=== PATIENT | female | born 1940 | race Caucasian/White ===

== ENCOUNTER → 2018-01-06 10:07 | Outpatient (CLI) | payer MEDICARE, OTHER ==
[2014-12-08 13:29] VITALS: BMI 26.6
[~2018-01-06 10:07] MED LIST: HYDROCODONE-APA1 TAB PO; ISOSORBIDE DINI10 MG; PRAVACHOL40 MG PO; SYNTHROID88 MCG PO
== END | disposition home or self-care (01) ==
LOC: D.OPS 10:07 → D.SP 11:00
DX: M16.12 Unilateral primary osteoarthritis, left hip (principal); Z01.812 Encounter for preprocedural laboratory examination

== ENCOUNTER 2019-02-05 06:00 | Day surgery (SDC) | payer MEDICARE, BC ==
[2019-02-03 14:20] LABS: BASOPHILS 0.3 % (0-2); EOSINOPHILS 0 % (0-7); HEMATOCRIT 44.5 % (36.0-48.0); HEMOGLOBIN 14.6 g/dL (12-16); IMMATURE GRANULOCYTES 0.5 % (0-5); LYMPHOCYTES 26.7 % (15-50); MCH 30.1 pg (26.0-34.0); MCHC 32.8 g/dL (31.0-37.0); MCV 91.8 fL (80.0-100.0); MEAN PLATELET VOLUME 9.7 fL (7.4-10.4); MONOCYTES 9.9 % (2-11); NEUTROPHILS 62.6 % (40-80); RBC 4.85 10x6/uL (4.00-5.40); RDW 13.9 % (11.5-14.5)
[2019-02-03 14:22] LABS: PLATELET COUNT 172 10x3/uL (130-400)
[2019-02-03 14:39] LABS: ANION GAP 11.5 mmol/L (8-16); CALCIUM 8.5 mg/dL (8.5-10.1); CARBON DIOXIDE 28.7 mmol/L (21.0-32.0); POTASSIUM - SERUM 4.2 mmol/L (3.5-5.1)
[~2019-02-05] VITALS: Ht 160 cm; Wt 69.4 kg
[~2019-02-05 06:00] MED LIST changes: +CELEXA40 MG PO; +PROTONIX40 MG PO; +VITAMIN D250000 UNIT PO
[2019-02-05 06:35] VITALS: BP 148/77; Ht 160 cm; Wt 69.4 kg
[2019-02-05] MEDS ORDERED: HYDROCODON-ACE1 EA10 PO (08:51)
--- NOTE | 2019-02-05 15:30 | NUR ---
PATIENT AMBULATES TO BATHROOM AND VOIDS MODERATE AMOUNT IN TOILET WITHOUT DIFFICULTY. PATIENT STATES "IT WASN'T A WHOLE LOT BUT IT WAS A GOOD LITTLE STREAM." BLADDER NONPALPABLE
--- NOTE | 2019-02-05 15:50 | NUR ---
PATIENT DISCHARGED HOME VIA WHEELCHAIR TO PRIVATE VEHICLE WITH SON
--- NOTE | 2019-02-06 11:12 | OP ---
PATIENT NAME: BASHIR MENENDEZ MEDICAL RECORD: [id number] :40 LOCATION:[facility] ADMISSION DATE: SURGEON: DELFINO ROSALES MD DATE OF OPERATION: 02/05/2019 PREOPERATIVE DIAGNOSES: 1. Gallstones. 2. Hypercholesterolemia. 3. Arthritis. POSTOPERATIVE DIAGNOSES: 1. Gallstones. 2. Hypercholesterolemia. 3. Arthritis. PROCEDURE: Laparoscopic cholecystectomy. SURGEON: Delfino Rosales MD REPORT OF PROCEDURE: The patient's abdomen was prepped and draped in sterile fashion. A cutdown was made just above the umbilicus in the midline. 0 Vicryls were placed in the fascia bilaterally and the fascia was incised with a 15 blade, then bluntly entered the abdominal cavity and placed a 12-mm Artemio port. Under direct visualization, a 5 mm trocar was placed in the epigastrium and 2 more 5-mm trocars were placed in the right subcostal region. The gallbladder was elevated. There was noted to be some inflammatory adhesions present on the inferior aspect of the gallbladder as it went out through the cystic duct. We were able to tease these adhesions down and eventually the cystic artery and cystic duct were dissected free. The cystic artery had 2 branches, all 3 of these structures were clipped proximally and distally and ligated in standard fashion. The gallbladder was then taken off the liver bed using electrocautery and placed in the right upper quadrant. Any bleeding from the liver bed was then treated with electrocautery. We irrigated out the right upper quadrant and assured there was no sign of any bleeding or bile leakage. At this point, the ports and insufflation were then removed and the gallbladder was taken out through the umbilicus. The umbilical fascia was closed with interrupted 0 Vicryls times 3. The wounds were irrigated out with normal saline and infused with 10 mL of 0.25% Marcaine with epinephrine. The skin incisions were all closed with subcutaneous 5-0 Monocryl and dressed appropriately. COMPLICATIONS: None. CONDITION: Stable. ANESTHESIA: General endotracheal and local. BLOOD LOSS: Minimal. TRANSINT:[id number] Voice Confirmation ID: [id number] DOCUMENT ID: [id number] OPERATIVE REPORT [id number] BASHIR MENENDEZ DELFINO ROSALES MD at 1112 CC: ALEKS DELGADO and ELISHA SHAH MD [id number] DICTATION DATE: 02/05/19 0856 TEMP RECRUITER: 02/05/19 1117 [facility] [place] 02/05/19 [place] [id number] [place] [address]
== END 2019-02-05 15:50 | disposition home or self-care (01) ==
LOC: D.OPS 06:00 → D.PAN 09:45 → D.OPS 09:45
PROVIDERS: Anesthesiology; ATTEND Surgery
DX: K80.10 Calculus of gallbladder with chronic cholecystitis without obstruction (principal); E78.00 Pure hypercholesterolemia, unspecified; M19.90 Unspecified osteoarthritis, unspecified site; Z01.812 Encounter for preprocedural laboratory examination